=== PATIENT | male | born 1955 | race Caucasian/White ===

== ENCOUNTER → 2017-05-25 | Outpatient (CLI) | payer MEDICARE ==
[~2017-05-25] MED LIST: 'CLONIDINE0.1 MG PO; AMLODIPINE10 MG PO; ASPIRIN ADULT L81 M2 PO; ASPIRIN ENTERIC81 M1 PO; ATORVASTATIN CA80 M1 PO; AUGMENTIN 875 M1 TAB PO; BETIMOL 2.5 ML2.5 M1 OPH; CLONIDINE0.2 MG PO; COZAAR100 MG PO; CRESTOR10 M1 PO; CRESTOR10 MG PO; CYCLOBENZAPRINE5 M3 PO; Carafate1 GM/10 ML PO; DIAMOX250 MG PO; DILTIAZEM CD120 MG PO; FML FORTE 0.25% OPH; GABAPENTIN400 M1 PO; GABAPENTIN400 MG PO; HUMALOG100 U/ML SC; HYDROCODONE BIT PO; HYZAAR 12.5 MG-1 TAB PO; ISOPTO CARPINE OPH; LANTUS SOLOS100 U/M1 SC; LASIX40 MG PO; LISINOPRIL10 MG PO; LISINOPRIL40 MG PO; MAGOX 400400 MG PO; METFORMIN1000 MG PO; METOPROLOL TART50 M1 PO; MIRALAX POWDER17 G1 PO; NORCO 7.5-3251 EACH PO; PRAD75 PO; PRECOSE25 MG PO; PROTONIX40 MG PO; RANITIDINE HCL150 M1 PO; RANITIDINE HCL300 M2 PO; TOPROL XL25 MG PO; TRAVATAN 0.0042.5 M1 INTRAOC; VITAMIN D25000 IU PO; VITAMIN D50000 I3 PO; ZESTRIL10 MG PO; [UNRECOGNIZED DRUG - OTHER]
[2017-05-25 12:58] LABS: BILIRUBIN NEGATIVE (NEGATIVE); BLOOD 1+ (NEGATIVE); CLARITY SL CLOUDY (CLEAR); COLOR YELLOW (YELLOW); GLUCOSE 2+ (NEGATIVE); KETONE NEGATIVE (NEGATIVE); LEUKO ESTERASE NEGATIVE (NEGATIVE); NITRITE NEGATIVE (NEGATIVE); PH 5.5 (5.0-9.0); PROTEIN TRACE (NEGATIVE)
[2017-05-25 12:59] LABS: BASO % 0.6 % (0.0-1.0); EOS # 0.3 10*3/uL (0.0-0.4); EOS % 5.1 % (1.0-4.0); HEMATOCRIT 46.4 % (42.0-52.0); HEMOGLOBIN 15.2 g/dl (14.0-18.0); LYMPH # 1.8 10*3/uL (1.3-4.4); LYMPH % 33.2 % (27.0-41.0); MEAN CELL VOLUME 89.7 fl (80.0-94.0); MEAN CORPUSCULAR HGB 29.4 pg (27.0-31.0); MEAN CORPUSCULAR HGB CONC 32.8 g/dl (33.0-37.0); MEAN PLATELET VOLUME 9.8 fl (9.6-12.3); MONO # 0.4 10*3/uL (0.1-1.0); MONO % 6.8 % (3.0-9.0); NEUT % 54.1 % (47.0-73.0); PLATELET COUNT AUTOMATED 197 10*3/uL (130-400); RED BLOOD COUNT 5.17 10*6/uL (4.50-5.90); RED CELL DISTRI WIDTH 15.1 % (0-14.5); WHITE BLOOD COUNT 5.5 10*3/uL (4.8-10.8)
[2017-05-25 13:11] LABS: URINE TP/CRE RATIO 0.3 (<0.21)
[2017-05-25 13:22] LABS: BACTERIA TRACE; MUCOUS TRACE; URINE REFLEX COMMENT YES (NO)
[2017-05-25 13:23] LABS: ALBUMIN 3.9 gm/dl (3.1-4.5); BUN 17 mg/dl (7-24); CARBON DIOXIDE 26 mmol/L (21-32); CHLORIDE 106 mmol/L (98-107); EST GLOM FILT AFRICAN AMERICAN > 60 ml/min; GLUCOSE 90 mg/dL (65-99); MAGNESIUM 2.1 mg/dL (1.5-2.1); PHOSPHOROUS 2.2 mg/dL (2.5-4.9); POTASSIUM 3.9 mmol/L (3.5-5.1); SODIUM 141 mmol/L (136-145)
== END | disposition home or self-care (01) ==
LOC: LAB 12:21
PROVIDERS: Internal Medicine Nephrology
DX: E11.21 Type 2 diabetes mellitus with diabetic nephropathy (principal); N25.81 Secondary hyperparathyroidism of renal origin

== ENCOUNTER → 2017-06-02 | Outpatient (CLI) | payer MEDICARE ==
[~2017-06-02] MED LIST changes: +IMDUR SA30 MG PO; +VITAMIN D-32000 UNIT PO
== END | disposition home or self-care (01) ==
LOC: CARD 03:47
DX: I25.118 Atherosclerotic heart disease of native coronary artery with other forms of angina pectoris (principal); R53.81 Other malaise

== ENCOUNTER → 2018-03-22 | Outpatient (CLI) | payer MEDICARE ==
[2018-03-22 13:42] LABS: BASO % 0.7 % (0.0-1.0); EOS # 0.2 10*3/uL (0.0-0.4); EOS % 3.2 % (1.0-4.0); HEMATOCRIT 47.4 % (42.0-52.0); HEMOGLOBIN 15.3 g/dl (14.0-18.0); LYMPH # 1.8 10*3/uL (1.3-4.4); LYMPH % 31.3 % (27.0-41.0); MEAN CELL VOLUME 92.2 fl (80.0-94.0); MEAN CORPUSCULAR HGB 29.8 pg (27.0-31.0); MEAN CORPUSCULAR HGB CONC 32.3 g/dl (33.0-37.0); MONO # 0.4 10*3/uL (0.1-1.0); NEUT # 3.4 10*3/uL (2.3-7.9); NEUT % 57.6 % (47.0-73.0); PLATELET COUNT AUTOMATED 163 10*3/uL (130-400); RED BLOOD COUNT 5.14 10*6/uL (4.50-5.90); RED CELL DISTRI WIDTH 14.1 % (0-14.5); WHITE BLOOD COUNT 5.9 10*3/uL (4.8-10.8)
[2018-03-22 14:03] LABS: ALBUMIN 3.9 gm/dl (3.1-4.5); CREATININE 1.99 mg/dL (0.70-1.30); PHOSPHOROUS 2.7 mg/dL (2.5-4.9); POTASSIUM 4.6 mmol/L (3.5-5.1)
[2018-03-22 14:13] LABS: BILIRUBIN NEGATIVE (NEGATIVE); BLOOD NEGATIVE (NEGATIVE); CLARITY CLEAR (CLEAR); COLOR YELLOW (YELLOW); GLUCOSE 3+ (NEGATIVE); KETONE NEGATIVE (NEGATIVE); LEUKO ESTERASE NEGATIVE (NEGATIVE); NITRITE NEGATIVE (NEGATIVE); PH 5.5 (5.0-9.0); URINE CREATININE RANDOM 72.3 mg/dL; UROBILINOGEN 0.2 E.U./dl (0.2-1.0)
[2018-03-22 14:26] LABS: BACTERIA TRACE; HYALINE CAST TNTC
[2018-03-22 15:24] LABS: PTH INTACT 92.3 pg/mL (14.0-72.0); VITAMIN D, 25-HYDROXY 27.6 ng/mL (30-100)
== END | disposition home or self-care (01) ==
LOC: LAB 13:07
PROVIDERS: Internal Medicine Nephrology
DX: E11.21 Type 2 diabetes mellitus with diabetic nephropathy (principal); N25.81 Secondary hyperparathyroidism of renal origin; E55.9 Vitamin D deficiency, unspecified; Z79.899 Other long term (current) drug therapy